=== PATIENT | male | born 2000 | race Caucasian/White ===

== ENCOUNTER 2020-04-18 07:55 | Emergency (ER) | payer BC | END 2020-04-18 09:47 | disposition home or self-care (01) | LOC: JVIRT 07:55 | DX: Z11.59 Encounter for screening for other viral diseases (principal) | CPT/HCPCS: C9803; G2012-GT; Q3014-GT; U0003 ==

== ENCOUNTER 2021-01-22 14:39 | Emergency (ER) | payer BC ==
[2021-01-24 07:13] LABS: SARS-CoV-2 NAA Not Detected (Not Detected)
== END 2021-01-22 15:08 | disposition home or self-care (01) ==
LOC: JVIRT 14:39
DX: Z11.52 Encounter for screening for COVID-19 (principal)
CPT/HCPCS: C9803; G2251-GT; U0003; U0005